=== PATIENT | male | born 1980 | race Caucasian/White ===

== ENCOUNTER 2019-07-03 10:48 | Inpatient (IN) | payer OTHER ==
[2019-07-03] VITALS (7 sets, daily range): BP systolic 128–146; BP diastolic 78–98
[~2019-07-03] VITALS: Ht 152.4 cm; Wt 68.9 kg
[2019-07-03 11:23] LABS: HEMATOCRIT 48.5 % (42.0-52.0); HEMOGLOBIN 16.7 gm/dL (14.0-18.0); MCH 30.6 pg (26.0-34.0); MCHC 34.5 g/dL (28.0-37.0); MCV 88.8 fL (80.0-100.0); PLATELET COUNT 150 thou/uL (150-400); RBC 5.46 mil/uL (4.50-6.00); RDW 12.6 % (10.5-14.5); WBC 15.7 thou/uL (4.0-11.0)
[2019-07-03 11:34] LABS: CALCIUM 10.2 mg/dL (8.5-10.1); CREATININE 1.6 mg/dL (0.7-1.3); POTASSIUM 3.2 mmol/L (3.5-5.1)
[2019-07-03 11:37] LABS: ALBUMIN 4.5 g/dL (3.4-5.0); TOTAL BILIRUBIN 0.7 mg/dL (<0.1-1.0); TOTAL PROTEIN 8.9 g/dL (6.4-8.2)
[2019-07-03 12:14] LABS: ABSOLUTE NEUTROPHILS 13.3 thou/uL (1.4-8.2); PLATELET ESTIMATE NORMAL
[2019-07-03 13:40] LABS: CSF CLARITY CLEAR; CSF COLOR COLORLESS; CSF GLUCOSE 75 mg/dL (40-70); VOLUME 5.5 ml
[2019-07-03 14:06] LABS: CSF RBC 1 /mm3
[2019-07-03 14:17] LABS: CSF EOSINOPHILS 0 %; CSF LYMPHOCYTES 80 %; CSF POLYS 1 %
[2019-07-03 14:21] LABS: CSF WBC 21 /mm3 (0-10)
[2019-07-03 15:34] LABS: URINE BILIRUBIN NEGATIVE (Negative); URINE BLOOD 2+ (Negative); URINE CLARITY CLEAR; URINE COLOR YELLOW; URINE GLUCOSE-RANDOM* NEGATIVE (Negative); URINE KETONES 1+ (Negative); URINE LEUKOCYTES-REFLEX NEGATIVE (Negative); URINE NITRITE-REFLEX NEGATIVE (Negative); URINE PROTEIN (DIPSTICK) 1+ (Negative); URINE UROBILINOGEN 0.2 E.U./dl (0.2-1.0)
[2019-07-03 15:43] LABS: FINE GRANULAR CASTS 0-3 Few /LPF (None Seen); HYALINE CASTS 4-10 Moderate /LPF (None Seen)
[2019-07-03 15:44] LABS: MUCUS >6 Heavy strn/LPF (None Seen)
[2019-07-03 15:45] LABS: AMORPHOUS URATES Few /LPF (None Seen); BACTERIA-REFLEX None Seen /HPF (None Seen); SQUAMOUS 0-3 Few /LPF (0-3); URINE RBC 3-10 Few /HPF (0-2); URINE WBC-REFLEX 0-5 Rare /HPF (0-5)
--- NOTE | 2019-07-03 19:47 | NUR ---
pt admitted from ER for viral meningitis, pt is A&OX3, PT is cantinuing IV fliud and iv abx, pt denies n/v , pt still has posiive for fever and chills,pt has tylenol 650mg po at 1845pm, RN will report to next shift to keep eye on pt.
--- NOTE | 2019-07-04 00:16 | NUR ---
PATIENT AOX4 MAKES NEEDS KNOWN.PATIENT HAS A PRODUCTIVE COUGH THIS SHIFT, PATIENT SAYS HE FEELS LIKE HE IS NOT ABLE TO COUGH OUT THE SPUTUM. CALLED PLANT PATHOLOGIST NEW ORDER ALBUTEROL AND MUCINEX, PATIENT NOTIFIED. PATIENT HAD 2 BOWEL MOVEMENT THIS SHIFT, GREEN LOOSE STOOLS. STOOL COLLECTED. PATIENT TEMPERATURE IS 99.0 AT THIS TIME. PATIENT AMBULATES WITH STEADY GAITS TO THE BATHROOM. HERE TO SEE PATIENT NEW ORDER TO COLLECT SPECIMENTS. PATIENT IN BED ASLEEP AT THIS TIME BREATHING REGULAR AND UNLABOURED.
[2019-07-04 03:59] VITALS: BP 129/75
[2019-07-04 04:08] VITALS: BP 115/58
[2019-07-04 05:47] LABS: ABSOLUTE NEUTROPHILS 7.3 thou/uL (1.4-8.2); BASOPHILS 0.4 % (0.0-2.0); EOSINOPHILS 0.3 % (0.0-3.0); HEMATOCRIT 35.7 % (42.0-52.0); LYMPHOCYTES 12.7 % (24.0-44.0); MCH 30.9 pg (26.0-34.0); MCHC 34.7 g/dL (28.0-37.0); MCV 88.8 fL (80.0-100.0); MONOCYTES 9.8 % (1.0-8.0); PLATELET COUNT 133 thou/uL (150-400); POLYS 76.8 % (36.0-66.0); RBC 4.02 mil/uL (4.50-6.00); RDW 12.9 % (10.5-14.5); WBC 9.5 thou/uL (4.0-11.0)
[2019-07-04 05:56] LABS: HEMOGLOBIN 12.4 gm/dL (14.0-18.0)
[2019-07-04 09:14] VITALS: BP 127/71
[2019-07-04 11:30] VITALS: BP 147/79
--- NOTE | 2019-07-04 11:38 | EKG ---
[address] [place] [address] ELECTROCARDIOGRAM REPORT Name: GANGA ANGULO Room #: 355-P ADM IN M.R.#: [id number] Admission: 07/03/19 Attend Phys: Jaydon Zamora MD Discharge: Date of : 78 Report #: [id number] THIS REPORT FOR: //name// [facility] ED Test Date: 2019-07-03 Test Time: 11:19:37 Pat Name: GANGA ANGULO Department: Room: 355 Gender: M [place] Singer: CELIA : 1980 Requested By: Oleg Rivera Order Number: [id number] MD: Cholo Keller Measurements Intervals [place] Rate: 91 P: 50 TX: 144 QRS: 72 QRSD: 93 T: 40 QT: 325 QTc: 400 Interpretive Statements Sinus rhythm Atrial premature complex Probable left atrial enlargement No previous ECG available for comparison Electronically Signed On 07-04-2019 11:38:23 CDT by Cholo Keller [email or web address] <ELECTRONICALLY SIGNED> By: Cholo Keller MD 07/04/19 1138 1119 1119 Cholo Keller MD /EPI
--- NOTE | 2019-07-04 18:44 | NUR ---
pt is A&OX3, PT is contiuning iv fluid , pain , n/v and temp management, but temp is 100-103F(O),and diarrhea, RN has notifed dr about pt's fever and abnormal lab results, new order received, ID dr will see pt soon.pt's family stay st pt's bedside.
[2019-07-04 19:35] VITALS: BP 118/81
[2019-07-05 04:04] VITALS: BP 115/76
--- NOTE | 2019-07-05 05:34 | NUR ---
ASSUMED CARE AT 1900. PT REPORTED MILD HEADACHE AT START OF SHIFT, GIVEN TYLENOL FOR RELIEF. DENIED NAUSEA OR SOB. INTIALLY, PT HAD LOW-GRADE FEVERS ABOUT 99, GAVE IBUPROFEN ONCE, BUT ABOUT 0200 PT SPIKED A FEVER TO 102.1 AND GAVE ANOTHER DOSE OF TYLENOL AND FRESH ICE PACKS, TEMP RETURNED TO 90'S. 2100 POTASSIUM WAS 3.4, GAVE x1 DOSE OF PO POTASSIUM PER PROTOCOL. IV FLUIDS INFUSING OVERNIGHT; PT DRINKING PLENTY OF FLUIDS BUT HAVING LOW URINE OUTPUT. NO OTHER CONCERNS, WILL CONTINUE TO MONITOR.
[2019-07-05 05:44] LABS: HEMATOCRIT 35.5 % (42.0-52.0); HEMOGLOBIN 12.3 gm/dL (14.0-18.0); MCH 30.5 pg (26.0-34.0); MCHC 34.7 g/dL (28.0-37.0); RBC 4.03 mil/uL (4.50-6.00)
[2019-07-05 05:53] LABS: CALCIUM 8.2 mg/dL (8.5-10.1); CREATININE 0.8 mg/dL (0.7-1.3); POTASSIUM 3.4 mmol/L (3.5-5.1)
[2019-07-05 07:46] VITALS: BP 132/89
[2019-07-05 10:29] LABS: MAGNESIUM 1.8 mg/dL (1.8-2.4); POTASSIUM 3.3 mmol/L (3.5-5.1)
--- NOTE | 2019-07-05 11:21 | NUR ---
ORDERS RECEIVED FOR EVAL AND TREAT. SPOKE WITH Pt WHO STATES HE IS GETTING UP ON HIS OWN WITHOUT DIFFICULTY AND DENIES ISSUES WITH STRENGTH OR BALANCE. STATES HE THINKS THE DOCTOR ORDERED P.T. BECAUSE HE SAID HE WAS GOING STIR CRAZY IN THE ROOM AND WANTED TO GET UP AND AROUND. Pt STATES HE WILL WALK ON HIS OWN IN THE HALLS. Pt DECLINING FORMAL P.T. EVAL
[2019-07-05 11:36] VITALS: BP 142/98
[2019-07-05 16:09] VITALS: BP 136/94
[2019-07-05 19:51] VITALS: BP 127/81
--- NOTE | 2019-07-05 20:21 | NUR ---
Assumed care approx. 0700 this AM. Hydrocodone administered once this AM for a severe headache which has since then resolved. Patient spiked a low grade fever around lunch time-ibuprofen given, fever broke and normal temp. by shift change. Patient hopeful to be discharged tomorrow. Patient progressing toward plan of care at this time.
[2019-07-06 03:38] VITALS: BP 140/79
--- NOTE | 2019-07-06 05:26 | NUR ---
ASSUMED CARE OF PT AT 1900. A&Ox4, COOPERATIVE. SR ON TELE. PT STATED DR WHITE HAD SEEN HIM AND TOLD HIM TO NOT TAKE TYLENOL TO PREVENT FEVER THIS SHIFT TO MONITOR TEMP. TEMP INCREASED TO 102.5F, IBUPROFEN GIVEN, DR. WHITE NOTIFIED. TEMP DROPPED TO 99.2. CONTINUING TO MONITOR. NO C/O HEADACHE THIS SHIFT. REQUESTED MUCINEX, PROVIDED. UP AD DOLLY TO BR, STEADY GAIT, USES URINAL FOR CONVENIENCE. CURRENTLY RESTING. PROGRESSING WELL TOWARDS POC GOALS.
[2019-07-06 07:56] VITALS: BP 140/85
[2019-07-06 11:17] VITALS: BP 132/85
[2019-07-06 16:46] VITALS: BP 137/95
--- NOTE | 2019-07-06 16:50 | NUR ---
Assumed care approx. 0700 this AM. Patient has ran low grade fever today of 99.5. Fever treated once with ibuprofen. Patient has complained of headache, but been refusing medication for pain at this time. Adequate urine output even with maintenance fluids being discontinued. Patient drinking ensure protein shakes, but still not consuming much food yet. Per Dr. Olsen, fevers need to break before discharge. PO cipro started today. Patient slowly progressing toward goals.
--- NOTE | 2019-07-06 17:23 | NUR ---
INITIAL ASSESSMENT: SW reviewed chart and spoke with attending physician. Pt was admitted from home due to possible viral meningitis. ID consulted due to fevers. Pt is alert/orientated x 4. Prior to admission, pt was independent with ADLs and lives at home. Plan is for pt to discharge home when medically stable. SW is following to assist as needed with discharge planning.
[2019-07-06 19:07] VITALS: BP 135/81
[2019-07-07 03:31] VITALS: BP 128/79
--- NOTE | 2019-07-07 05:14 | NUR ---
PATIENT IS ALERT AND ORIENTED. PATIENT IS UP AD DOLLY. PATIENT IS ROOM AIR. PATIENT DENIES PAIN. PATIENT STILL RUNNING FEVERS THIS SHIFT. PATIENT IS READY TO GO HOME. PENDING POSSIBLE DISCHARGE IF FEVERS DISSIPATE. PATIENTS LBM WAS THE 15TH. PATIENT IS RESTING COMFORTABLY IN BED. WCM. PATIENT IS PROGRESSING TO GOALS.
[2019-07-07 07:10] VITALS: BP 140/91
[2019-07-07 11:24] VITALS: BP 148/99
[2019-07-07] MEDS ORDERED: CIPRO500 MG PO (14:37)
[2019-07-07 14:48] VITALS: BP 148/99
--- NOTE | 2019-07-07 15:04 | NUR ---
ASSUMED CARE OF PATIENT AT 0700. VITALS STABLE. PATIENT REMAINED AFEBRILE SINCE 1155 LAST NIGHT. PROVIDED DISCHARGE EDUCATION WITH READING MATERIAL ON ORAL ANTIBIOTC HE WILL BE PRESCRIBED.
--- NOTE | 2019-07-07 15:07 | NUR ---
DISCHARGE NOTE: SW reviewed chart and spoke with nursing and attending physician. Pt is medically stable to discharge home today. Pt to be on PO abx for 10 days and follow with ID next week. SW met with pt at bedside to discuss discharge. Pt is agreeable. Pt's family will provide transportation home. No additional SW needs identified at this time, but is available to assist should needs arise.
[2019-07-07 22:08] LABS: ADENOVIRUS Negative (Negative); INFLUENZA A Negative (Negative); INFLUENZA B Negative (Negative); METAPNEUMOVIRUS Negative (Negative); PARAINFLUENZA 1 Negative (Negative); PARAINFLUENZA 2 Negative (Negative); PARAINFLUENZA 3 Negative (Negative); RHINOVIRUS Negative (Negative); RSV A Negative (Negative); RSV B Negative (Negative)
--- NOTE | 2019-08-08 14:55 | HC ---
[facility] [place] [address] CONSULTATION Name: GANGA RAMIREZ Room #: 354-P [facility] IN M.R.#: [id number] Admission: 07/03/19 Attend Phys: Jaydon Zamora MD Discharge: 07/07/19 Date of : 78 Report #: [id number] THIS REPORT FOR: //name// CC: ARMANDO physician/PCP Jaydon Zamora DATE OF SERVICE: 07/03/2019 CONSULTATION: Infectious diseases. HISTORY OF PRESENT ILLNESS:Ilan Ramirez is a 39-year-old white male admitted to [facility] on with history of fevers up to 103 associated with nausea, vomiting and diarrhea. This illness was associated with a cough, headache, myalgias and some transient confusion. It has been present less than 24 hours. Workup suggested septic parameters and possible aseptic meningitis. Infectious Disease consultation was requested after broad-spectrum antibiotic therapy. PAST MEDICAL HISTORY: Otherwise, unremarkable. The patient is showing good health without ongoing medical problems. FAMILY HISTORY: Noncontributory. SOCIAL HISTORY: The patient is single, but has a long-term female partner for many years. They lived together. They have no children in the house. The patient denies use of tobacco, alcohol, but does admit to consistent use of marijuana. 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 No significant occupational exposures. No unusual travel. No arthropod exposure. No unusual dietary exposure. No one else has been ill with a similar illness. The patient has not had his flu shot. REVIEW OF SYSTEMS: GENERAL: Fevers, chills, sweats which already better. ENT: The patient describes a headache. It is [id number]. It is frontal. It is not associated with photophobia or stiff neck. His cognitive dysfunctions are normalized after the temperature came back to normal. The patient is not complaining of any stiff neck. No sinus congestion or drainage. No sore throat or trouble swallowing. No dental issues. CHEST: The patient has a hcaj-rg-mkgqwtfd cough, which is generally nonproductive. No chest pain or shortness of breath. No angina, syncope or palpitation. GASTROINTESTINAL: The patient had diarrhea for the day of admission. This is already better. He has not had stool in 12 hours. His nausea is improved. He still has no appetite. No abdominal pain. GENITOURINARY: No complaints. EXTREMITIES: No complaints. [address] [address] CONSULTATION Name: GANGA RAMIREZ Room #: 354-P [facility] IN [facility]#: [id number] Admission: 07/03/19 Attend Phys: Jaydon Zamora MD Discharge: 07/07/19 Date of : 78 Report #: [id number] PHYSICAL EXAMINATION: GENERAL: The patient appears healthy, comfortable, alert, oriented, pleasant, not in any distress. VITAL SIGNS: Show maximum measured temperature 39.3. The patient was afebrile at the time of my examination. SKIN: Shows no rash, no lesion. No petechiae. No palmar. No solar lesions. ENT: Negative. No photophobia. No stiffness of the neck. Oral cavity is normal. There is no palpable lymphadenopathy. HEART: Sounds normal, regular rate and rhythm. LUNGS: Clear to auscultation and percussion. The patient was not dyspneic. ABDOMEN: Soft, nontender without mass nor organomegaly. No rebound. Bowel sounds normal. EXTREMITIES: Normal. LABORATORY DATA: White count is 15.7, hemoglobin was 16.7, hematocrit 48%, platelet 158,000. Electrolytes were normal except for potassium 3.2, BUN 28, creatinine 1.6. Lumbar puncture was performed. This demonstrated 21 white cells per high powered field. There were 90% mononuclears or lymphocytes. Glucose and protein were normal. The chest x-ray was clear. Urinalysis was normal. Influenza antigens were negative. ASSESSMENT AND PLAN: In summary, the patient with 1-day history of fevers, chills and GI symptoms. He is already improving. He did have some headache and cough and confusion with a high fever. This most likely seems like a viral syndrome in an otherwise healthy young man. I doubt if there is evidence of significant meningitis. Certainly, there is little evidence to suggest bacterial meningitis. I suspect mild leukocytosis and the spinal fluid might have just a reaction to the high fever. I suggest we can discontinue the antibiotic therapy. We can stop the isolation. The patient is dehydrated and this can be corrected with IV fluids. We will repeat a CBC, electrolytes and chest x-ray in the morning. If they are better, the patient is feeling well, he could go home with symptomatic treatment for nausea, fever and pain. If the patient is worse, we could pursue further studies including sinus x-rays, repeat chest x-ray and respiratory viral panel and initial blood cultures if febrile. There is nothing to suggest the patient is at risk for HIV. This does not seem like a tick-borne type disease. If the patient has more diarrhea, we can do a stool pathogen studies. I appreciate the opportunity to offer input in the care of this pleasant gentleman. I suspect that his symptoms have resolved in the next 24-[address] [address] CONSULTATION Name: GANGA RAMIREZ Room #: 354-P DIS IN M.R.#: [id number] Admission: 07/03/19 Attend Phys: Jaydon Zamora MD Discharge: 07/07/19 Date of : 78 Report #: [id number] and will be able to go home with symptomatic therapy. I do not think he needs any antibiotics at this time. <ELECTRONICALLY SIGNED> By: Emanuel Castañeda MD 08/08/19 1455 1201 0023 Emanuel Castañeda MD /nt
== END 2019-07-07 17:19 | disposition home or self-care (01) | DRG 391 ==
LOC: ER 10:48 → EROBS 15:01 → 3W 15:01
PROVIDERS: Emergency Medicine; Internal Medicine Infectious Disease; ADMIT Hospitalist
PROC: 009U3ZX Drainage of Spinal Canal, Percutaneous Approach, Diagnostic (ICD-10-PCS; principal; 2019-07-03)
DX: K52.9 Noninfective gastroenteritis and colitis, unspecified (principal); N17.0 Acute kidney failure with tubular necrosis; M86.8X7 Other osteomyelitis, ankle and foot; E86.0 Dehydration; B34.9 Viral infection, unspecified; E11.610 Type 2 diabetes mellitus with diabetic neuropathic arthropathy; E11.69 Type 2 diabetes mellitus with other specified complication; E66.9 Obesity, unspecified; I48.91 Unspecified atrial fibrillation; E11.51 Type 2 diabetes mellitus with diabetic peripheral angiopathy without gangrene; Z68.29 Body mass index [BMI] 29.0-29.9, adult
CPT/HCPCS: 10080; 10879